=== PATIENT | female | born 1955 | race Caucasian/White ===

== ENCOUNTER 2016-10-02 08:36 | Day surgery (SDC) | payer OTHER ==
[~2016-10-02] VITALS: Ht 160 cm; Wt 67.3 kg
[2016-10-02 09:37] VITALS: Ht 160 cm; Wt 67.3 kg
[2016-10-02] MEDS ORDERED: ATORVASTATIN PO (09:44)
[2016-10-02] MEDS ORDERED: NAPROXEN PO (09:44)
[2016-10-02] MEDS ORDERED: ALPRAZOLAM PO (09:44)
[2016-10-02] MEDS ORDERED: PANTOPRAZOLE PO (09:44)
[2016-10-02] MEDS ORDERED: ZOLOFT PO (09:44)
[2016-10-02] MEDS ORDERED: RANITIDINE PO (09:44)
[2016-10-02] MEDS ORDERED: LIDOCAINE 4% SOLUTION 50 ML BTL ONE (09:51)
[2016-10-02 09:58] VITALS: BP 139/67; PULSE 68; RESP 18
[2016-10-02] MEDS ORDERED: FENTAnyl 50 MCG/ML VIAL ONE (10:39)
[2016-10-02] MEDS ORDERED: MIDAZOLAM 1 MG/ML 2 ML INJ ONE ×3 (10:39→10:40)
[2016-10-02 11:06] VITALS: BP 104/57; PULSE 52; RESP 20
--- NOTE | 2016-10-02 17:24 | GILP ---
DATE OF PROCEDURE: PROCEDURE PERFORMED: Colonoscopy with biopsy. INDICATION: The patient is a 61-year-old female undergoing this procedure for persistent epigastric pain for months and severe constipation. The purpose is to evaluate the colon for colon cancer scr eening. INFORMED CONSENT: Risk of the procedure, related and unrelated complications, anesthetic sedative r isks, alternatives discussed and informed consent was obtained. DESCRIPTION OF PROCEDURE: The patient was brought to the GI lab, sedated with Versed 5 mg, fentanyl 100 mL. After optimal sedation, scope was passed with much ease into esophagus which was grossly w ithin normal limits. Z line was regular it was at 38 cm. Stomach mucosa revealed gastritis. Biops ies taken: Multiple. Duodenum was normal. Ampulla was normal. Retroversion also was normal. Sco pe was straightened out and removed with good patient tolerance. IMPRESSION 1. Gastritis. 2. Normal esophagus. 3. Normal Z-line at 38 cm. 4. Normal duodenum and ampulla. PLAN: Review histopathology. COLONOSCOPY REPORT: She was turned around, scope was passed with much ease into rectum, advanced th rough sigmoid, descending, transverse colon all the way into cecum. Appendiceal orifice identified. While coming out, mucosa thoroughly inspected. There was a diminutive polyp in the prececal area, successfully removed. Rest of the colon appeared normal. Ileocecal valve was normal. Retroversio n done, no growth was seen. Scope was straightened out and removed with good patient tolerance. No rmal finding all the way into cecum. IMPRESSION: 1. Diminutive polyp presacral area successfully removed. 2. Preparation was good to adequate. 3. Normal retroversion. PLAN: To review histopathology and we will need to do a CAT scan of the abdomen and pelvis to ident josafat the cause of her abdominal pain. This finding cannot explain me. Dictated By: KALLIE MADDEN/AGUEDA Conf#: [id number] DID#: [id number]
== END 2016-10-02 12:32 | disposition home or self-care (01) ==
LOC: GIL 08:36
PROVIDERS: ATTEND Internal Medicine Gastroenterology
DX: K29.50 Unspecified chronic gastritis without bleeding (principal); D12.0 Benign neoplasm of cecum
CPT/HCPCS: 43239; 45380; 88305; 88312; J2250; J3010; Z7610